=== PATIENT | male | born 1980 ===

== ENCOUNTER 2016-10-07 20:39 | Emergency (ER) | payer SELFPAY ==
[2016-10-07 20:49] VITALS: BP 124/76
[2016-10-07 20:58] LABS: Basophils % (Auto) 1.4 % (0.0-1.8); Eosinophils % (Auto) 2.8 % (0.0-4.3); Hematocrit 43.4 % (35.5-45.6); Hemoglobin 14.7 gm/dl (11.8-15.2); Mean Corpuscular HGB Conc 34 % (32-34); Mean Corpuscular Hemoglobin 33 pg (28-32); Mean Corpuscular Volume 97 fl (84-94); Platelet Count 244 K/mm3 (140-440); Red Blood Count 4.48 M/mm3 (3.65-5.03); Red Cell Distribution Width 12.3 % (13.2-15.2); White Blood Count 7.8 K/mm3 (4.5-11.0)
[2016-10-07 21:14] LABS: Anion Gap 19 mmol/L; Blood Urea Nitrogen 11 mg/dL (9-20); Calcium 8.5 mg/dL (8.4-10.2); Carbon Dioxide 22 mmol/L (22-30); Chloride 101.9 mmol/L (98-107); Glucose 88 mg/dL (75-100); Potassium 3.2 mmol/L (3.6-5.0); Sodium 140 mmol/L (137-145)
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
--- NOTE | 2016-10-12 11:05 | ED Elopement Review ---
ED Pt Elopement review - Results review Lab results: Laboratory Tests 10/07/16 10/07/16 10/07/16 20:44 20:44 20:44 WBC 7.8 RBC 4.48 Hgb 14.7 Hct 43.4 MCV 97 H MCH 33 H MCHC 34 RDW 12.3 L Plt Count 244 Lymph % (Auto) 27.2 [place] % (Auto) 7.8 H Eos % (Auto) 2.8 Baso % (Auto) 1.4 Lymph # 2.1 [place] # 0.6 Eos # 0.2 Baso # 0.1 Seg Neutrophils % 60.8 Seg Neutrophils # 4.7 Sodium 140 Potassium 3.2 L Chloride 101.9 Carbon Dioxide 22 Anion Gap 19 BUN 11 Creatinine 1.0 Estimated GFR > 60 BUN/Creatinine Ratio 11.00 Glucose 88 Calcium 8.5 Plasma/Serum Alcohol 0.17 H - Call Back decision Pt Call Back Decision: No action required
== END 2016-10-07 22:00 | disposition left against medical advice (07) ==
LOC: ED 20:39
DX: Z00.8 Encounter for other general examination (principal); Z53.21 Procedure and treatment not carried out due to patient leaving prior to being seen by health care provider
CPT/HCPCS: 36415; 73130; 80048; 85025; G0480; 80320